=== PATIENT | female | born 1985 | race Caucasian/White ===

== ENCOUNTER 2018-06-06 07:00 | Observation (INO) | payer OTHER ==
[2018-06-06] MEDS ORDERED: MISOPROSTOL 200 MCG TAB PR PRN (07:31)
[2018-06-06] MEDS ORDERED: IBUPROFEN 600 MG TAB PO PRN (07:31)
[2018-06-06] MEDS ORDERED: LR 1,000 ML IV PRN (07:31)
[2018-06-06] MEDS ORDERED: OXYTOCIN/RINGERS LACTATE 1,000 ML IV PRN (07:31)
[2018-06-06] MEDS ORDERED: EPSOM SALT 454 GM TP PRN (07:31)
[2018-06-06] MEDS ORDERED: OLIVE OIL 118 ML BTL MISC PRN (07:31)
[2018-06-06] MEDS ORDERED: TERBUTALINE SULFATE 1 MG/ML VIAL IV PRN (07:31)
[2018-06-06] MEDS ORDERED: LIDOCAINE 1% 300 MG/30 ML SDV SC PRN (07:31)
[2018-06-06] MEDS ORDERED: hydrOXYzine HCL 25 MG TAB PO PRN (08:51)
--- NOTE | 2018-06-06 09:44 | PDGENHP ---
History and Physical History and Physical: CARE: [facility] HPI: Patient is a 32 yo G 2 P 0 @ 40.1 weeks that presents to L&D with complaints of strong uterine ctx since midnight. EDC: 06/05/18 which is based on LMP: 08/21/17 which is known and consistent with Ultrasound at 40 weeks. Her is complicated by: hashimotos, zika exposure. Review of Systems: Constitutional: Denies any fever, chills, or fatigue HEENT: denies any visual changes, difficulty swallowing, hearing loss Cardiovascular: Denies any chest pain, palpitations, leg swelling Respiratory: denies any cough, wheezing, or shortness of breathe GI: Denies any nausea, vomiting, diarrhea, constipation : denies any dysuria, urgency, frequency, vaginal bleeding Musculoskeletal: denies any muscle or bone pain Skin: denies any rashes Neuro: denies any headache, seizures, lightheadedness, dizziness, or loss of consciousness Psychiatric: denies any depression, anxiety, or SI/HI thoughts HISTORY: Previous OB history: prior terminated by D&E at 20 weeks d/t severe cleft lip and palate 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: , 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 Family history: mom- migraines Past medical history: hx of renal anomoly Past surgical history: ureter reattachment surgery at age 29 Medications: PNV, calcium Allergies (list reaction): NKDA LABS: Rh: A + ABS: Neg Rubella: Immune HbsAg: NR HIV: NR VDRL: NR 1hr: 97 GC: Neg Chlamydia: Neg Pap: Normal GBS: neg BMI: (prepreg) 19 PHYSICAL EXAM: Constitutional: WN, A&Ox3 HEENT: normocephalic atraumatic, supple Heart: RRR, no murmur Chest: CTA-B Skin: warm, dry, intact Abdomen: Soft, nontender, gravid SVE: 2/80/-1 per RN Extremities: no edema, negative homans sign Neuro: grossly normal Psych: normal affect assessment: FHT baseline 135, +accels, no decels, moderate variability Contractions: toco q 7-10 min Assessment: 1) 32 yo G 2 P 0 with IUP@ 40 2) latent phase of labor 3) GBS neg 4) Cat 1 FHR tracing Plan: 1) Home at thist time, return to L&D when frequency increases 2) therapeutic rest with vistaril
--- NOTE | 2018-06-06 09:46 | OBGCSDC ---
General Delivery Information - General Info : 2 Para: 0 Abortions: 1 Admission Date: 06/06/18 - Hospital Course Antepartum: 06/06/18 09:45 latent phase of labor, FHR category 1, Home for rest Data FREDERICK: 06/05/18 Gestational Age: 40 week(s) and 1 day(s) Discharge Information - Discharge Information Prescriptions: hydrOXYzine HCL [hydrOXYzine HCL (RX)] 25 mg PO Q6HRS PRN #2 tab PRN Reason: Sleep/Insomnia Hydroxyzine Pamoate [Vistaril] 25 mg PO Q6 #1 capsule Condition: Good Instruction/Follow Up: See Instruction Sheet
== END 2018-06-06 09:40 | disposition home or self-care (01) ==
LOC: FLD 07:00
PROVIDERS: ADMIT Advanced Practice Midwife; ATTEND Advanced Practice Midwife
PROC: 4A0HXCZ Measurement of Products of Conception, Cardiac Rate, External Approach (ICD-10-PCS; principal; 2018-06-06)
DX: O63.0 Prolonged first stage (of labor) (principal); Z3A.40 40 weeks gestation of pregnancy
CPT/HCPCS: 59025; G0378

== ENCOUNTER 2018-06-06 19:06 | Inpatient (IN) | payer OTHER ==
[2018-06-06] MEDS ORDERED: EPSOM SALT 454 GM TP PRN (19:18)
[2018-06-06] MEDS ORDERED: OLIVE OIL 118 ML BTL MISC PRN (19:18)
[2018-06-06] MEDS ORDERED: LIDOCAINE 1% 300 MG/30 ML SDV SC PRN (19:18)
[2018-06-06] MEDS ORDERED: MISOPROSTOL 200 MCG TAB PO PRN (19:18)
[2018-06-06] MEDS ORDERED: IBUPROFEN 600 MG TAB PO PRN (19:18)
[2018-06-06] MEDS ORDERED: OXYTOCIN/RINGERS LACTATE 1,000 ML IV PRN (19:18)
[2018-06-06] MEDS ORDERED: AMMONIA AROMATIC 1 EACH AMP IH PRN (19:18)
[2018-06-06] MEDS ORDERED: LR 1,000 ML IV PRN (19:18)
[2018-06-06] MEDS ORDERED: TERBUTALINE SULFATE 1 MG/ML VIAL IV PRN (19:18)
--- NOTE | 2018-06-06 19:24 | PDGENHP ---
History and Physical History and Physical: See complete H&P from earlier today. S: Strong contractions all day, pt fatigued and presents requesting evaluation. O: VSS, SVE /-1, FHT cat 1. FHR baseline 145, + accels, - decels, Ctx q 5- 7 min. A: Active labor. P: Hydrotherapy, other pain relief options as needed. Anticipate .
[2018-06-06 19:58] LABS: PLATELET COUNT 129 10^3/uL (150-400)
[2018-06-06] MEDS ORDERED: TERBUTALINE SULFATE 1 MG/ML VIAL ONE (22:19)
[2018-06-06] MEDS ORDERED: AMMONIA AROMATIC 1 EACH AMP IH ONE (22:19)
[2018-06-06] MEDS ORDERED: LIDOCAINE 1% 300 MG/30 ML SDV ONE (22:19)
[2018-06-06] MEDS ORDERED: OLIVE OIL 118 ML BTL ONE (22:19)
[2018-06-06] MEDS ORDERED: MISOPROSTOL 200 MCG TAB ONE (22:20)
[2018-06-06] MEDS ORDERED: OXYTOCIN 10 UNIT/ML VIAL ONE (22:20)
--- NOTE | 2018-06-06 23:49 | OBPROG ---
Labor Progress Note Assessment/Plan: Assessment: Active labor Plan: Anticipate 06/06/18 23:45 Subjective/Intrapartum Course: 06/06/18 23:46 coping well with ctx, FOB and mother present for labor support Objective: 06/06/18 19:45 Patient ABO/Rh A POSITIVE 06/06/18 19:45 - SVE Dilation (cm): 7 Effacement (%): 90 Station: 0 Membranes: Intact - Contraction Pattern Assessment Current Contraction Pattern: Regular CNM Assessment - Uterine Assessment Contraction Strength: Moderate Uterine Resting Tone: Palpates Soft Contraction Frequency (minutes): q 3-4 min Contraction Duration (sec): 60 - Intermittent Auscultation Auscultation Method Used: Doppler Heart Rate Auscultated (bpm): 140 FHR Acceleration(s) Auscultated: Yes Oxytocin Orders Assessment - Pre-Induction/Augmentation Assessment Gestational Age: 40 week(s) and 1 day(s) ICD10 Worksheet Patient Problems: Problems Problem Status Onset Normal labor Acute Term Acute
--- NOTE | 2018-06-07 01:13 | OBPROG ---
Labor Progress Note Assessment/Plan: Assessment: Active labor Plan: Anticipate 06/06/18 23:45 06/07/18 01:11 slow progress in labor Subjective/Intrapartum Course: 06/06/18 23:46 coping well with ctx, FOB and mother present for labor support 06/07/18 01:11 feeling exhausted and frustrated, requesting options for pain relief Objective: 06/06/18 19:45 Patient ABO/Rh A POSITIVE 06/06/18 19:45 - SVE Dilation (cm): 7 Effacement (%): 90 Station: 0 Membranes: Intact - Contraction Pattern Assessment Current Contraction Pattern: Irregular (contractions have spaced out to every 10 minutes) - FHR Assessment Gonsalez FHR (bpm): 130 - AP Antepartum Course: 06/07/18 01:12 Planning epidural anesthesia at this time Oxytocin Orders Assessment - Pre-Induction/Augmentation Assessment Gestational Age: 40 week(s) and 1 day(s) ICD10 Worksheet Patient Problems: Problems Problem Status Onset Normal labor Acute Term Acute
[2018-06-07] MEDS ORDERED: PHENYLEPHRINE HCL 100 MCG/ML SYR IVP PRN (01:16)
--- NOTE | 2018-06-07 01:19 | PREANESOB ---
Obstetric Pre-Anesthesia Info - General Info Proposed Procedure: ryan : 2 Para: 0 FREDERICK: 06/05/18 Gestational Age: 40 week(s) and 1 day(s) - Info Status: Full Term FHR Pattern: Reassuring - Labor Status Cervical Dilation per last OB SVE: 7 Station per last OB SVE: 0 Indications for Labor Analgesia: Pain Control Labor Epidural: Proposed Anesthesia Allergies/Adverse Reactions: Allergy/AdvReac Type Severity Reaction Status Date / Time latex Allergy Verified 06/06/18 19:53 Home Medications: Medication Instructions Recorded Herbals/Supplements -Info Only 1 ea PO DAILY 07/06/14 Hydroxyzine Pamoate [Vistaril] 25 mg PO Q6 #1 capsule 06/06/18 06/06/18 hydrOXYzine HCL [hydrOXYzine HCL 25 mg PO Q6HRS PRN #2 tab 06/06/18 (RX)] Visit Medications: Generic Name Dose Route Start Last Admin Trade Name Freq PRN Reason Stop Dose Admin Ammonia (Aromatic Spirit) 1 each 06/06/18 19:18 Ammonia Aromatic IH 06/16/18 19:17 ONCE PRN Fainting Lactated Ringer's 1,000 mls @ 0 mls/hr 06/06/18 19:18 Lr IV 06/07/18 19:17 PRN PRN SEE PROTOCOL CONDITIONS Protocol Per Protocol Oxytocin/Lactated Ringer's 1,000 mls @ 0 mls/hr 06/06/18 19:18 Pitocin 20 Units/Lr (Premix) IV PRN PRN Post bleeding As Directed Fentanyl 200 mcg/ Bupivacaine 100 mls @ 0 mls/hr 06/07/18 01:30 HCl 20 ml/ Sodium Chloride EP 06/17/18 01:29 CONT [facility] Protocol As Directed Fentanyl/Bupivacaine HCl 100 mls @ 0 mls/hr 06/07/18 01:30 Fentanyl/Bupivacaine/Ns 2 Mcg/Ml 0.1% (Premix EP 06/17/18 01:29 CONT [facility] Protocol As Directed Lactated Ringer's 500 mls @ 0 mls/hr 06/07/18 01:30 Lr IV 12/04/18 01:29 CONT [facility] As Directed Ibuprofen 600 mg 06/06/18 19:18 Motrin PO ONCE PRN post , pain Lidocaine HCl 300 mg 06/06/18 19:18 Lidocaine Hcl 1% SC 12/03/18 19:17 ONCE PRN episiotomy Magnesium Sulfate 454 gm 06/06/18 19:18 Epsom Salt TP 12/03/18 19:17 Q1H PRN perineal discomfort Misoprostol 800 - 1,000 mcg 06/06/18 19:18 Cytotec PO 12/03/18 19:17 ONCE PRN Vaginal Atony/Bleeding Anson Oil 118 ml 06/06/18 19:18 Sweet Oil MISC 12/03/18 19:17 ONCE PRN perineal massage Phenylephrine HCl 100 mcg 06/07/18 01:16 Neosynephrine IVP 12/04/18 01:15 .Q2M PRN Hypotension Terbutaline Sulfate 0.25 mg 06/06/18 19:18 Brethine IV 12/03/18 19:17 ONCE PRN Tachysystole Discontinued Medications Generic Name Dose Route Start Last Admin Trade Name Freq PRN Reason Stop Dose Admin Ammonia (Aromatic Spirit) Confirm 06/06/18 22:19 Ammonia Aromatic Administered 06/06/18 22:20 Dose 1 each IH .STK-MED ONE Lidocaine HCl Confirm 06/06/18 22:19 Lidocaine Hcl 1% Administered 06/06/18 22:20 Dose 300 mg .ROUTE .STK-MED ONE Misoprostol Confirm 06/06/18 22:20 Cytotec Administered 06/06/18 22:21 Dose 1,000 mcg .ROUTE .STK-MED ONE Anson Oil Confirm 06/06/18 22:19 Sweet Oil Administered 06/06/18 22:20 Dose 118 ml .ROUTE .STK-MED ONE Oxytocin Confirm 06/06/18 22:20 Pitocin Administered 06/06/18 22:21 Dose 40 unit .ROUTE .STK-MED ONE Terbutaline Sulfate Confirm 06/06/18 22:19 Brethine Administered 06/06/18 22:20 Dose 1 mg .ROUTE .STK-MED ONE - Anesthesia History Response to Local Anesthetics: Normal Anesthesia & Operative History: No Prior Problems Family Anesthesia History: Not Applicable - Social History Substance Use/Abuse: Denies (Epidural placed without problems) - Vital Signs Height/Weight (Nursing): Height 170.18 cm Weight 67.132 kg - Focused Exam Neck exam: FROM Mallampati Score: Class 1 Pulmonary: no respiratory distress, no rales or rhonchi Cardiovascular: regular rate and rhythym, systolic murmur Labs: 06/06/18 19:45 Patient ABO/Rh A POSITIVE 06/06/18 19:45 - Plan Consent Signed and on Chart: Yes Patient/Guardian Understands and Agrees to Plan: Yes
[2018-06-07] MEDS ORDERED: BUPIVACAINE 0.5% 30 ML SDV ONE (01:24)
[2018-06-07] MEDS ORDERED: fentaNYL 100 MCG/2 ML INJ ONE (01:24)
[2018-06-07] MEDS ORDERED: fentaNYL 2MCG/ML/BUP 0.1% RTU 100 ML EP SCH (01:30)
[2018-06-07] MEDS ORDERED: LR 500 ML IV SCH (01:30)
[2018-06-07] MEDS ORDERED: fentaNYL 200 MCG, BUPIVACAINE 0.5% 20 ML in NS 100 ML EP SCH (01:30)
[2018-06-07] MEDS ORDERED: LR 500 ML IV PRN (02:14)
--- NOTE | 2018-06-07 02:16 | OBPROG ---
Labor Progress Note Assessment/Plan: Assessment: Active labor Plan: Anticipate 06/06/18 23:45 06/07/18 01:11 slow progress in labor Subjective/Intrapartum Course: 06/06/18 23:46 coping well with ctx, FOB and mother present for labor support 06/07/18 01:11 feeling exhausted and frustrated, requesting options for pain relief 06/07/18 02:16 comfortable with epidural, plan pitocin augmentation Objective: 06/06/18 19:45 Patient ABO/Rh A POSITIVE 06/06/18 19:45 - SVE Membranes: Intact - Contraction Pattern Assessment Current Contraction Pattern: Irregular (contractions have spaced out to every 10 minutes) - AP Antepartum Course: 06/07/18 01:12 Planning epidural anesthesia at this time Oxytocin Orders Assessment - Pre-Induction/Augmentation Assessment Gestational Age: 40 week(s) and 1 day(s) ICD10 Worksheet Patient Problems: Problems Problem Status Onset Normal labor Acute Term Acute
[2018-06-07] MEDS ORDERED: OXYTOCIN/RINGERS LACTATE 500 ML IV SCH (02:30)
--- NOTE | 2018-06-07 06:06 | OBPROG ---
Labor Progress Note Assessment/Plan: Assessment: Active labor Plan: Anticipate 06/06/18 23:45 06/07/18 01:11 slow progress in labor Subjective/Intrapartum Course: 06/06/18 23:46 coping well with ctx, FOB and mother present for labor support 06/07/18 01:11 feeling exhausted and frustrated, requesting options for pain relief 06/07/18 02:16 comfortable with epidural, plan pitocin augmentation 06/07/18 06:04 pt comfortable with epidural. sleeping. pit at 4mU. minimal cervical change. FHT remain cat 1 Objective: 06/06/18 19:45 Patient ABO/Rh A POSITIVE 06/06/18 19:45 - SVE Dilation (cm): 7 Effacement (%): 90 Station: 0 Membranes: Intact - Contraction Pattern Assessment Current Contraction Pattern: Regular - AP Antepartum Course: 06/07/18 01:12 Planning epidural anesthesia at this time Oxytocin Orders Assessment - Pre-Induction/Augmentation Assessment Gestational Age: 40 week(s) and 1 day(s) ICD10 Worksheet Patient Problems: Problems Problem Status Onset Normal labor Acute Term Acute
--- NOTE | 2018-06-07 08:00 | OBPROG ---
Labor Progress Note Assessment/Plan: Assessment: Plan: 06/07/18 07:58 Cervical lip present. Pt feeling pain when attempting to reduce the lip. 06/07/18 07:59 P: Will attempt to bolus epidural twice prior to attempting to reduce the lip. If still uncomfortable will call anesthesia for bolus. Anticipate Subjective/Intrapartum Course: 06/06/18 23:46 coping well with ctx, FOB and mother present for labor support 06/07/18 01:11 feeling exhausted and frustrated, requesting options for pain relief 06/07/18 02:16 comfortable with epidural, plan pitocin augmentation 06/07/18 06:04 pt comfortable with epidural. sleeping. pit at 4mU. minimal cervical change. FHT remain cat 1 06/07/18 07:56 Feeling some discomfort with contractions. Has bolused now twice and turned to the other side to get better coverage on that hip. Did get some sleep last night after the epidural Objective: 06/06/18 19:45 Patient ABO/Rh A POSITIVE 06/06/18 19:45 - SVE Dilation (cm): 9 Effacement (%): 100 Station: +3 Membranes: Intact - Contraction Pattern Assessment Current Contraction Pattern: Regular (q 3 to 4 minutes on 5 mu/hr pitocin) - FHR Assessment Gonsalez FHR (bpm): 125 (125-130) FHR Pattern Variability: Moderate FHR Category: 1 - AP Antepartum Course: 06/07/18 01:12 Planning epidural anesthesia at this time Oxytocin Orders Assessment - Pre-Induction/Augmentation Assessment Gestational Age: 40 week(s) and 1 day(s) ICD10 Worksheet Patient Problems: Problems Problem Status Onset Normal labor Acute Term Acute
--- NOTE | 2018-06-07 08:20 | OBPROG ---
Labor Progress Note Assessment/Plan: Assessment: Plan: 06/07/18 07:58 Cervical lip present. Pt feeling pain when attempting to reduce the lip. 06/07/18 07:59 P: Will attempt to bolus epidural twice prior to attempting to reduce the lip. If still uncomfortable will call anesthesia for bolus. Anticipate 06/07/18 08:21 Malpresentation; contractions inadequate strength; epidural ineffective P: Call anesthesia to bolus epidural Increased pitocin to 7 mu/hr. Once comfortable will reattempt rotation Subjective/Intrapartum Course: 06/06/18 23:46 coping well with ctx, FOB and mother present for labor support 06/07/18 01:11 feeling exhausted and frustrated, requesting options for pain relief 06/07/18 02:16 comfortable with epidural, plan pitocin augmentation 06/07/18 06:04 pt comfortable with epidural. sleeping. pit at 4mU. minimal cervical change. FHT remain cat 1 06/07/18 07:56 Feeling some discomfort with contractions. Has bolused now twice and turned to the other side to get better coverage on that hip. Did get some sleep last night after the epidural 06/07/18 08:20 A little more comfortable with epidural Objective: 06/06/18 19:45 Patient ABO/Rh A POSITIVE 06/06/18 19:45 Baby in ROP presentation. Pt unable to tolerate pressure from exam to attempt manual rotation. - SVE Dilation (cm): 10 Effacement (%): 100 Station: +2 Membranes: SROM, Intact Amniotic Fluid Color: Clear Dilation Complete Date: 06/07/18 Dilation Complete Time: 15:00 - Contraction Pattern Assessment Current Contraction Pattern: Regular (Contractions minimal pressure during SVE. Increased pitocin to 7 mu/hr) - FHR Assessment Gonsalez FHR (bpm): 120 FHR Pattern Variability: Moderate FHR Category: 1 - AP Antepartum Course: 06/07/18 01:12 Planning epidural anesthesia at this time Oxytocin Orders Assessment - Pre-Induction/Augmentation Assessment Gestational Age: 40 week(s) and 1 day(s) ICD10 Worksheet Patient Problems: Problems Problem Status Onset Normal labor Acute Term Acute
--- NOTE | 2018-06-07 09:46 | OBDEL ---
Info Type: Vaginal Presentation at Delivery: Vertex (OA rotated to ROP) L&D Analgesia/Anesthesia Type: Epidural GBS+: No Intrapartum Medications: Generic Name Dose Route Start Last Admin Trade Name Jimmy PRN Reason Stop Dose Admin Oxytocin/Lactated Ringer's 500 mls @ 0 mls/hr 06/07/18 02:30 06/07/18 04:03 Pitocin 30 Units/Lr (Premix) IV 12/04/18 02:29 500 mls CONT SAMEER Administration Protocol Per Protocol - Hospital Course Intrapartum: 06/06/18 23:46 coping well with ctx, FOB and mother present for labor support 06/07/18 01:11 feeling exhausted and frustrated, requesting options for pain relief 06/07/18 02:16 comfortable with epidural, plan pitocin augmentation 06/07/18 06:04 pt comfortable with epidural. sleeping. pit at 4mU. minimal cervical change. FHT remain cat 1 06/07/18 07:56 Feeling some discomfort with contractions. Has bolused now twice and turned to the other side to get better coverage on that hip. Did get some sleep last night after the epidural 06/07/18 08:20 A little more comfortable with epidural Indications for Delivery: Spontaneous Labor Vaginal Delivery - Delivery Provider Delivery Physician/CNM: Lucero Shields - Labor and Delivery Onset of Contractions Date: 06/06/18 Onset of Contractions Time: 00:00 Onset of Contractions Type: Spontaneous Rupture of Membranes Date: 06/07/18 Rupture of Membranes Time: 08:06 Rupture of Membranes Type: Spontaneous Amniotic Fluid Color: Clear Dilation Complete Date: 06/07/18 Dilation Complete Time: 08:06 Placenta Delivery Date: 06/07/18 Placenta Delivery Time: 09:23 Total Hours of Labor: 33 Laceration: 1st Degree (Vaginal laceration repaired for hemostasis. Required several sutures to control bleeding.) Repair: 3-0, Vicryl Vaginal Sponge Count Correct: Yes Vaginal Needle Count Correct: Yes Vaginal Sweep Performed: Yes EBL: 500 Delivery Events: None - Medications Labor Augmentation/Induction Methods Used: Pitocin Labor Augmentation/Induction Indication: Inadequate Contraction Frequency, Inadequate Contraction Strength Data FREDERICK: 06/05/18 Gestational Age: 40 week(s) and 2 day(s) Gonsalez Delivery Date: 06/07/18 Delivery Time: 09:16 Sex of : Female Score (1 Min): 8 Score (5 Min): 9 ICD10 Worksheet Patient Problems: Problems Problem Status Onset Normal labor Acute Term Acute
[2018-06-07] MEDS: ACETAMINOPHEN 325 MG TAB PO SCH ×3 (16:02→22:14)
[2018-06-07] MEDS: IBUPROFEN 600 MG TAB PO SCH ×3 (18:46→23:43)
[2018-06-08] MEDS: IBUPROFEN 600 MG TAB PO SCH ×4 (01:01→23:35)
[2018-06-08] MEDS: ACETAMINOPHEN 325 MG TAB PO SCH ×4 (01:02→23:34)
[2018-06-08] MEDS: DOCUSATE SODIUM 100 MG CAP PO PRN ×3 (01:02→21:03)
--- NOTE | 2018-06-08 11:06 | OBPP ---
Progress Note Assessment/Plan: Assessment: [id number] s/p PPD#1 Plan: routine PP care support PRN anticipate d/c home tomorrow 06/08/18 11:04 Subjective/ Course: 06/08/18 11:05 Pt doing well, happy with . Denies any pain- states she is a little sore. Denies any heavy bleeding. she is ambulating and voiding without difficulty. Objective: 06/08/18 06:50 Patient ABO/Rh A POSITIVE 06/06/18 19:45 Temp Pulse Resp BP Pulse Ox 36.1 C 92 16 94/64 L 97 06/08/18 08:00 06/08/18 08:00 06/08/18 08:00 06/08/18 08:00 06/08/18 08:00 Uterine Position/Fundal Height: Umbilicus -2, Midline Uterine Tone: Firm Physical Exam - Physical Exam General Appearance: WD/WN, alert, no apparent distress Neck: supple Respiratory: normal breath sounds Cardiac/Chest: regular rate, rhythm Abdomen: non-tender, soft Skin: normal color, warm/dry Neuro/Psych: alert, normal mood/affect, oriented x 3
[2018-06-08] MEDS ORDERED: IRON POLYSAC/IRON HEME 28 MG TAB PO SCH (11:15)
--- NOTE | 2018-06-08 16:31 | POSTANESTH ---
Post Anesthetic Evaluation Cardiovascular Status: Normal, Stable Respiratory Status: Normal, Stable Level of Consciousness/Mental Status: Can Participate in Eval Pain Control: Adequate, Prn Tx Ordered Nausea/Vomiting Control: Adequate, Prn Tx Ordered Complications Possibly Related to Anesthesia: None Noted (No NICHOLS. Back has no signs of infection)
[2018-06-08 20:26] VITALS: BP 110/66
[2018-06-08] MEDS: FERRO-SEQUELS 65 MG TAB.ER PO SCH ×2 (21:03)
[2018-06-09] MEDS: IBUPROFEN 600 MG TAB PO SCH ×2 (08:33→08:36)
[2018-06-09] MEDS: ACETAMINOPHEN 325 MG TAB PO SCH ×2 (08:33→08:35)
[2018-06-09] MEDS: DOCUSATE SODIUM 100 MG CAP PO PRN (08:36)
--- NOTE | 2018-06-09 08:36 | OBGCSDC ---
General Delivery Information - General Info : 2 Para: 1 Abortions: 0 Type: Vaginal L&D Analgesia/Anesthesia Type: Epidural Admission Date: 06/06/18 Labs: Patient ABO/Rh A POSITIVE 06/06/18 19:45 Hct 27.2 % (38.0-47.0) L 06/08/18 06:50 - Hospital Course Antepartum: 06/07/18 01:12 Planning epidural anesthesia at this time Intrapartum: 06/06/18 23:46 coping well with ctx, FOB and mother present for labor support 06/07/18 01:11 feeling exhausted and frustrated, requesting options for pain relief 06/07/18 02:16 comfortable with epidural, plan pitocin augmentation 06/07/18 06:04 pt comfortable with epidural. sleeping. pit at 4mU. minimal cervical change. FHT remain cat 1 06/07/18 07:56 Feeling some discomfort with contractions. Has bolused now twice and turned to the other side to get better coverage on that hip. Did get some sleep last night after the epidural 06/07/18 08:20 A little more comfortable with epidural : 06/08/18 11:05 Pt doing well, happy with . Denies any pain- states she is a little sore. Denies any heavy bleeding. she is ambulating and voiding without difficulty. 06/09/18 09:12 S) Pt doing well, reports min pain and bleeding. she is ambulating and voiding without difficulty. She is with support from . She desires discharge home today. O) VSS, afebrile constitutional: WNWF, A&Ox3 HEENT: normocephalic, atraumatic, supple Heart: RRR, No murmur Chest: CTA-B Abdomen: Soft, nontender Uterus: Firm at U-2 Lochia: Minimal rubra Perineum: Intact, healing well Extremities: Trace edema, and negative Tina's sign Neuro: Grossly normal A) 32 year-old P1 S/P PPD#2 Anemia with support P) Discharge home today Continue Pelvic rest [id number] Iron supplement bid Discussed danger signs (infection, preeclampsia, depression, heavy bleeding, etc) RTO in 2/4/6 weeks Vaginal - Delivery Provider Delivery Physician/CNM: Lucero Shields - Diagnosis Labor: Spontaneous Rupture of Membranes Type: Spontaneous Amniotic Fluid Color: Clear Laceration: 1st Degree (Vaginal laceration repaired for hemostasis. Required several sutures to control bleeding.) Repair: 3-0, Vicryl Delivery Events: None - Delivery EBL: 500 Data FREDERICK: 06/05/18 Gestational Age: 40 week(s) and 4 day(s) Gonsalez Delivery Date: 06/07/18 Delivery Time: 09:16 Sex of : Female [place] Weight (gm): 3032 g Score (1 Min): 8 Score (5 Min): 9 Discharge Information - Discharge Information Prescriptions: Ibuprofen [Motrin (*)] 600 mg PO Q6H #40 tab Condition: Good
[2018-06-09] MEDS: FERRO-SEQUELS 65 MG TAB.ER PO SCH (11:35)
== END 2018-06-09 12:25 | disposition home or self-care (01) | DRG 807 ==
LOC: FLD 19:06 → FOB 06-07 12:28
PROVIDERS: ADMIT Advanced Practice Midwife; ATTEND Advanced Practice Midwife
DX: O70.0 First degree perineal laceration during delivery (principal); Z37.0 Single live birth; Z3A.40 40 weeks gestation of pregnancy
CPT/HCPCS: J2370; J2590; J3010; J3105